=== PATIENT | female | born 2000 | race African-American/Black ===

== ENCOUNTER 2025-01-25 18:00 | Inpatient (IN) | payer OTHER ==
[2025-01-25 20:55] VITALS: BMI 36.7
[2025-01-25] MEDS ORDERED: Ibuprofen 800 MG TAB PO PRN (20:58)
[2025-01-25] MEDS ORDERED: hydrALAZINE 20 MG/ML VIAL SLOW IVP PRN ×2 (20:58)
[2025-01-25] MEDS ORDERED: Lidocaine 1% (PF) 30 ML VIAL SC PRN (20:58)
[2025-01-25] MEDS ORDERED: Ondansetron PF 4 MG/2 ML Vial IVP PRN (20:58)
[2025-01-25] MEDS ORDERED: Tranexamic Acid 1,000 MG/10 ML VIAL IVP PRN (20:58)
[2025-01-25] MEDS ORDERED: Diphenoxylate HCl/Atropine Tablet PO PRN (20:58)
[2025-01-25] MEDS ORDERED: Methylergonovine 0.2 MG/ML VIAL IM PRN (20:58)
[2025-01-25] MEDS ORDERED: Acetaminophen 500 MG TAB PO PRN (20:58)
[2025-01-25] MEDS ORDERED: Carboprost 250 MCG/ML AMP IM PRN (20:58)
[2025-01-25] MEDS ORDERED: Oxytocin 30 units/NS 500 ML 500 ML IV SCH (21:00)
[2025-01-25 21:11] LABS: Hematocrit 31.4 % (34.9-44.5); Hemoglobin 10.8 g/dL (12.0-15.5); Mean Corpuscular Hemoglobin 31.0 pg (27.0-33.0); Mean Corpuscular Volume 90.2 fL (81.6-98.3); Platelet Count 282 10x3/uL (150-450); Red Blood Cell (RBC) Count 3.48 10x6/uL (3.90-5.03); White Blood Cell (WBC) Count 8.74 10x3/uL (3.5-10.5)
[2025-01-25 22:39] LABS: Hep B Surf Ag - L&D Non-Reactive S/CO (NonReactive)
[2025-01-25 23:34] LABS: Syphilis Antibody Index 0.06 S/CO (<1.00 Non-Reactive)
[2025-01-26] MEDS: fentaNYL/Ropivacaine Epidural 100 ML ONE (00:44)
[2025-01-26] MEDS ORDERED: Ondansetron PF 4 MG/2 ML Vial IVP PRN ×2 (00:54→07:53)
[2025-01-26] MEDS ORDERED: diphenhydrAMINE 50 MG/ML VIAL IVP PRN (00:54)
[2025-01-26] MEDS ORDERED: Communication Order-Pharmacy FS SCH (01:00)
[2025-01-26] MEDS ORDERED: fentaNYL 2 mcg/Ropivacaine 0.2% Epidural 100 ML CADD EPIDURAL SCH (01:00)
[2025-01-26] MEDS: Oxytocin 30 units/NS 500 ML 500 ML IV SCH (07:13)
[2025-01-26] MEDS ORDERED: hydrALAZINE 20 MG/ML VIAL SLOW IVP PRN (07:53)
[2025-01-26] MEDS ORDERED: Bisacodyl 10 MG SUPP PR PRN (07:53)
[2025-01-26] MEDS ORDERED: Milk Of Magnesia 30 ML UDCUP PO PRN (07:53)
[2025-01-26] MEDS ORDERED: Lanolin Ointment 7 GM TUBE TOP PRN (07:53)
[2025-01-26] MEDS ORDERED: Methylergonovine 0.2 MG/ML VIAL IM PRN (07:53)
[2025-01-26] MEDS ORDERED: Preparation H Ointment 28 GM TUBE PR PRN (07:53)
[2025-01-26] MEDS ORDERED: Oxytocin 30 units/NS 500 ML 500 ML IV SCH (08:00)
[2025-01-26] MEDS: Ferrous Sulfate 325 MG TAB PO SCH (09:54)
[2025-01-26] MEDS: Ibuprofen 800 MG TAB PO SCH (09:55)
[2025-01-26] MEDS ORDERED: Ibuprofen 800 MG TAB PO SCH (14:00)
[2025-01-26] MEDS: Acetaminophen 325 MG TAB PO PRN (16:44)
[2025-01-26] MEDS: Boostrix 0.5 ML (Tdap) VIAL (>/=7 yrs of age) IM ONE (21:19)
[2025-01-27] MEDS ORDERED: HYDROcodone/Acetaminophen 5/325 mg Tablet PO PRN (00:55)
[2025-01-27 03:54] LABS: #Basophils 0.03 10x3/uL (0.0-0.2); #Eosinophils 0.18 10x3/uL (0.0-0.5); #Monocytes 1.10 10x3/uL (0.0-1.1); #Neutrophils 7.59 10x3/uL (1.5-8.4); %Basophils 0.2 % (0.0-2.0); %Eosinophils 1.5 % (0.0-6.0); %Lymphocytes 24.7 % (18.0-47.0); %Monocytes 9.2 % (0.0-10.0); %Neutrophils 63.2 % (40.0-75.0); Hematocrit 30.7 % (34.9-44.5); Hemoglobin 10.3 g/dL (12.0-15.5); Mean Corpuscular Hemoglobin 30.9 pg (27.0-33.0); Mean Corpuscular Volume 92.2 fL (81.6-98.3); Platelet Count 242 10x3/uL (150-450); Red Blood Cell (RBC) Count 3.33 10x6/uL (3.90-5.03); White Blood Cell (WBC) Count 12.01 10x3/uL (3.5-10.5)
[2025-01-27 07:56] VITALS: BP 118/65; TEMP 97.5
== END 2025-01-27 16:30 | disposition home or self-care (01) | DRG 807 ==
LOC: CSHLD 18:27 → CSHPED 01-26 15:40
PROVIDERS: ADMIT Family Medicine; ATTEND Family Medicine
PROC: 0KQM0ZZ Repair Perineum Muscle, Open Approach (ICD-10-PCS; principal; 2025-01-26)
PROC: 10E0XZZ Delivery of Products of Conception, External Approach (ICD-10-PCS; 2025-01-26)
PROC: 0UQMXZZ Repair Vulva, External Approach (ICD-10-PCS; 2025-01-26)
DX: O13.4 Gestational [pregnancy-induced] hypertension without significant proteinuria, complicating childbirth (principal); Z37.0 Single live birth; Z3A.37 37 weeks gestation of pregnancy; O99.02 Anemia complicating childbirth; O70.1 Second degree perineal laceration during delivery; O71.82 Other specified trauma to perineum and vulva
CPT/HCPCS: 36415; 51702; 85025; 85027; 86780; 86850; 86900; 86901; 87340; J2590; J7120